=== PATIENT | female | born 1970 | race Caucasian/White ===

== ENCOUNTER 2017-04-12 14:59 | Emergency (ER) | payer OTHER ==
[~2017-04-12] VITALS: Ht 162.6 cm; Wt 71.0 kg
[~2017-04-12 14:59] MED LIST: BUPR100 PO; LURA40 PO; RISP1 PO
[2017-04-12] MEDS ORDERED: GABA-531 PO (15:21)
[2017-04-12 16:17] VITALS: BP 132/80
== END 2017-04-12 16:36 | disposition home or self-care (01) ==
LOC: EMS 15:00
DX: F41.9 Anxiety disorder, unspecified (principal); M54.9 Dorsalgia, unspecified; G89.29 Other chronic pain; F10.10 Alcohol abuse, uncomplicated; F12.10 Cannabis abuse, uncomplicated; F15.10 Other stimulant abuse, uncomplicated; F32.9 Major depressive disorder, single episode, unspecified; Z88.0 Allergy status to penicillin
CPT/HCPCS: 99284

== ENCOUNTER 2017-05-12 14:44 | Emergency (ER) | payer OTHER ==
[~2017-05-12] VITALS: Ht 170.2 cm; Wt 66.0 kg
[~2017-05-12 14:44] MED LIST changes: +GABA-531 PO; -LURA40 PO; -RISP1 PO
[2017-05-12] MEDS ORDERED: DIPH25 PO (14:58)
[2017-05-12] MEDS ORDERED: IBUP-2354 PO (14:58)
[2017-05-12 15:40] VITALS: BP 128/82
[2017-05-12] MEDS ORDERED: KETOROLAC TROMETHAMINE 60 MG/2 ML VIAL IM ONE (16:15)
[2017-05-12] MEDS ORDERED: ONDANSETRON HCL 4 MG TABLET PO ONE (16:15)
== END 2017-05-12 16:35 | disposition home or self-care (01) ==
LOC: EMS 14:44
DX: Z76.0 Encounter for issue of repeat prescription (principal); G43.909 Migraine, unspecified, not intractable, without status migrainosus; F12.90 Cannabis use, unspecified, uncomplicated; F15.90 Other stimulant use, unspecified, uncomplicated; Z88.0 Allergy status to penicillin
CPT/HCPCS: 96372; 99283; J1885; Q0162